=== PATIENT | male | born 1940 | race Caucasian/White ===

== ENCOUNTER 2018-06-15 07:29 | Observation (INO) | payer MEDICARE ==
--- NOTE | 2018-06-15 08:08 | RAD ---
PORTABLE AP CHEST: Date: 06/15/18 HISTORY: Patient not speaking appropriately. COMPARISON: 02/25/14. FINDINGS: Cardiac silhouette and pulmonary vasculature are within normal limits. There is mild elevation of the right hemidiaphragm, similar to the prior study. The lungs are clear. Vascular calcifications are se en in the thoracic aorta. There has been no interval change from the prior exam. IMPRESSION: No acute cardiopulmonary process. POS: [facility]
[2018-06-15 08:09] LABS: #Basophils 0.1 thou/uL (0.0-0.2); #Lymphocytes 1.7 thou/uL (1.20-3.40); #Monocytes 0.6 thou/uL (0.11-0.59); #Neutrophils 6.3 thou/uL (1.40-6.50); %Basophils 0.9 % (0.0-1.0); %Eosinophils 0.4 % (0.0-10.0); %Lymphocytes 19.3 % (21.0-51.0); %Monocytes 7.1 % (0.0-10.0); %Neutrophils 72.2 % (42.0-75.0); Hemoglobin 14.1 g/dL (14.0-18.0); Mean Corpuscular HGB CONC 32.1 g/dL (32.0-36.0); Mean Corpuscular Hemoglobin 29.5 pg (27.0-31.0); Mean Corpuscular Volume 91.8 fL (78.0-98.0); Mean Platelet Volume 9.5 fL (7.4-10.4); Platelet Count 248 thou/uL (130-400); RBC Distribution Width 12.3 % (11.5-14.5); Red Blood Cell (RBC) Count 4.79 mill/uL (4.70-6.10); White Blood Cell (WBC) Count 8.8 thou/uL (4.8-10.8)
[2018-06-15 08:26] LABS: ALT (SGPT) 14 U/L (8-55); AST (SGOT) 16 U/L (5-34); Albumin 4.7 g/dL (3.4-4.8); Alkaline Phosphatase 79 U/L (40-150); Anion Gap 19 mmol/L (10-20); BUN (Urea Nitrogen) 24 mg/dL (8.4-25.7); Calc. Creatinine Clearance 0 mL/min (70-130); Calcium 10.6 mg/dL (7.8-10.44); Carbon Dioxide 21 mmol/L (23-31); Chloride 103 mmol/L (98-107); Estimated GFR-MDRD 51; Globulin 3.1 g/dL (2.4-3.5); Glucose 142 mg/dL (83-110); Potassium 5.1 mmol/L (3.5-5.1); Protein, Total 7.8 g/dL (5.8-8.1); Sodium 138 mmol/L (136-145)
[2018-06-15 08:49] LABS: CKMB 1.2 ng/mL (0-6.6)
[2018-06-15] MEDS ORDERED: Aspirin Chewable 81 MG TAB ONE (09:00)
--- NOTE | 2018-06-15 09:09 | CT ---
NONCONTRAST CT HEAD: Date: 06/15/18 HISTORY: Difficulty ambulating with onset of symptoms for 1.5 weeks. Slurred speech. COMPARISON: None available. FINDINGS: There is decreased attenuation seen in the periventricular white matter which is nonspecific but like ly reflective of moderate chronic small vessel ischemic changes. Low density foci are seen within the posterior limb of left internal capsule and posterior aspect of the left lentiform nucleus related t o lacunar infarctions of indeterminate age. There is also a low density focus within the right aspect of the toby related to a lacunar infarction of indeterminate age. There is no evidence of an acute cortical infarction, hemorrhage, mass effect, or midline shift. Cere bral and cerebellar volume loss is present. Low density area seen within the posteromedial right cere bellar hemisphere has the appearance more suggestive of a remote area of infarction as opposed to asy mmetry and volume loss. Ventricular system is normal in size, shape, and position for the degree of sulcal atrophy. Visualize d paranasal sinuses and mastoid air cells are clear. Calvarial structures are intact. IMPRESSION: 1. Lacunar infarctions within the left basal ganglia and right aspect of the toby, which are of inde terminate age. No acute cortical infarction is seen. 2. Moderate chronic small vessel ischemic changes. 3. Remote infarction right cerebellar hemisphere. 4. Cerebral and cerebellar volume loss. POS: [facility]
[2018-06-15 11:14] LABS: Troponin I 0.038 ng/mL (< 0.028)
[2018-06-15] MEDS ORDERED: Acetaminophen 325 MG TAB PO PRN (11:31)
[2018-06-15] MEDS ORDERED: Dextrose 5% in Water 1,000 ML IV PRN (11:47)
[2018-06-15] MEDS ORDERED: Dextrose 50% Abboject 50 ML SYRINGE SLOW IVP PRN (11:47)
--- NOTE | 2018-06-15 12:35 | HP ---
CHIEF COMPLAINT: Difficulty walking and slurred speech. HISTORY OF PRESENT ILLNESS: The patient is a 78-year-old male with a history of diabetes, hypertension, hyperlipidemia, who presented via the emergency department. The patient is with his family today including his son. The patient started having some difficulty walking about 5 days ago. He was having some staggering. The patient has some difficulty clearly assessing, which like he thinks might have been were problematic, but his family indicates he was complaining more about his right leg being a challenge, and the patient thinks that is likely the case, and then, felt like both of his legs were weak. He had initially been ambulating even with the staggering and difficulty, but subsequently has been trying to use a cane. He also developed some slurred speech, which was difficult for the family to understand occurring about the same time as the gait disturbance. They think it is possible that might be slightly better today. They have been after the patient to come to the hospital since the onset of symptoms and he ultimately agreed today. The patient states he does not believe he needs to be in the hospital and is eager to go home. He denies any problems with his memory or any specific cognitive changes. He denies any problems with his blood sugars presently. He has had no fevers or chills. PAST MEDICAL HISTORY: Notable for hypertension, hyperlipidemia, diabetes mellitus, and history of prostate cancer. PAST SURGICAL HISTORY: Prostate resection about 10 years ago. FAMILY HISTORY: Reviewed. SOCIAL HISTORY: The patient has been a chew tobacco user for most of his life. States he loves it and continues to do it. He very occasionally will drink beer. He has never used drugs. He was as of March 30, 2018, and currently, lives with family. REVIEW OF SYSTEMS: The patient reports that he has been eating and drinking quite well, some discrepancy amongst family members whether that is the case or not, but ultimately it sounds like he probably has been. He continues to be active and working with his animals at home. All other systems were reviewed and all pertinent positives and negatives noted in the history of present illness. ALLERGIES: PENICILLIN. CURRENT MEDICATIONS: 1. Vitamin D3 1000 units p.o. daily. 2. Aspirin 81 mg daily. 3. Amlodipine 5 mg at bedtime. 4. Metformin 1000 mg p.o. b.i.d. 5. Lisinopril 20 mg p.o. b.i.d. PHYSICAL EXAMINATION: VITAL SIGNS: Temperature 97.4, pulse 70, respirations 16, O2 saturation 98% on room air, BP 132/75. GENERAL APPEARANCE: Age-appropriate male, who is awake, alert, oriented, pleasant, and cooperative. HEENT: PERRL. No OP lesions. He has dentures, which are stained as well as his tongue is stained with color of tobacco. NECK: Supple and symmetric. There are no bruits noted on auscultation. HEART: Regular rate and rhythm without murmurs, gallops, or rubs. LUNGS: Clear to auscultation bilaterally with good chest wall expansion and air exchange. ABDOMEN: Soft, nontender, and nondistended. Positive bowel sounds. No organomegaly. EXTREMITIES: Warm and dry. No edema. SKIN: No skin lesions or rashes. NEUROLOGIC: The patient does have slight dysarthria. Otherwise, cranial nerves are grossly intact. His motor strength appears to be good throughout. He possibly has slight weakness on the left side, but it is subtle in both the upper and lower extremities. LABORATORY DATA: White count 8.8, hemoglobin 14.1, platelets 248. Sodium 138, potassium 5.1, chloride 103, CO2 of 21, BUN 24, creatinine 1.36, glucose 142, calcium 10.6, AST 16, ALT 14. Troponin 0.0037, subsequently 0.038. Albumin 4.7. IMAGING STUDIES: CT scan of brain reveals lacunar infarctions within the left basal ganglia and right aspect of the toby, which are indeterminate in age. No acute cortical infarction seen. Moderate chronic small-vessel ischemic changes. Remote infarct of the right cerebellar hemisphere. Chest x-ray, no acute cardiopulmonary processes. IMPRESSION AND PLAN: 1. Subacute cerebrovascular accident. The patient has evidence of lacunar and cerebellar infarcts on the CT scan, somewhat age indeterminate, clearly had acute onset of symptoms about 5 days ago. The patient is already on aspirin. He has had no prior workup. We will get an MRI of the head, echocardiogram, carotid Dopplers in light of his renal function. We will get the stroke team consult and Neurology consult. 2. Chronic kidney disease stage 3. His creatinine appears to be stable and at baseline. Likely related to his diabetes and hypertension. 3. Hypercalcemia, new. Etiology is unknown. We will repeat in the morning. 4. Equivocal troponins, likely secondary to the patient's chronic kidney disease. He has had no cardiac symptoms, and his numbers so far are not representing any type of physiologic rise. We will continue to monitor. 5. Diabetes mellitus. Diabetic diet. Accu-Chek's. Continue metformin. 6. Hypertension. Continue with his usual home medication regimen of amlodipine and lisinopril. 7. Hyperlipidemia. The patient has a history of a significant reaction with transaminitis and rhabdomyolysis with statin therapy. Therefore, those were not going to be introduced at this time. 8. History of chronic tobacco abuse with smokeless tobacco. Job ID: [id number]
--- NOTE | 2018-06-15 13:36 | ULT ---
CAROTID ULTRASOUND WITH GUNN SCALE AND DOPPLER DUPLEX COLOR FLOW IMAGING SPECTRAL ANALYSIS PERFORMED: DATE: 06/15/18 CLINICAL INDICATION: CVA. FINDINGS: There is scattered moderate atherosclerotic calcification of the carotid arteries. PEAK SYSTOLIC VELOCITY (CM/S): Right CCA 86 Left CCA 100 Right ICA 148 Left ICA 83 There is antegrade flow within the visualized bilateral vertebral arteries. IMPRESSION: 1. 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 2. No hemodynamically significant stenosis of the left internal carotid artery. POS: [facility]
[2018-06-15 14:15] LABS: Troponin I 0.028 ng/mL (< 0.028)
--- NOTE | 2018-06-15 14:57 | MRI ---
MRI BRAIN WITHOUT IV CONTRAST: Date: 06/15/18 HISTORY: CVA. Difficulty ambulating. Slurred speech. CT exam demonstrating lacunar infarctions of indeterminat e age in the right toby and left basal ganglia. COMPARISON: Noncontrast CT head on 06/15/18 obtained at 0802 hours. FINDINGS: There are separate foci of restricted diffusion present within the right aspect of the toby compatibl e with acute lacunar infarctions in the right aspect of the toby. This is also seen on the recent CT scan exam. No additional areas of restricted diffusion to suggest additional areas of acute infarctio n. There are patchy confluent areas of increased FLAIR and T2-weighted signal intensity in the periventr icular and subcortical white matter which are nonspecific but likely attributable to severe chronic s mall vessel ischemic changes. There is an area of encephalomalacia and gliosis seen in the right cere bellar hemisphere, compatible with a remote infarction in the right cerebellar hemisphere. There are hyperintense signal abnormalities within the left basal ganglia involving the posterior martin b left internal capsule and the left lentiform nucleus which demonstrate characteristics compatible w ith more remote lacunar infarctions. There is cerebral and cerebellar volume loss. The ventricular system is normal in size, shape, and po sition for the degree of sulcal atrophy. Grossly appropriate flow-voids are demonstrated at the base of the brain. The orbits, paranasal sinuses, and skull base demonstrate a normal MRI appearance, aside from effusio ns and right-sided mastoid air cells. IMPRESSION: 1. Acute lacunar infarctions in the right toby. 2. Remote lacunar infarctions in the left basal ganglia. 3. Findings likely reflective of moderate chronic small vessel ischemic changes. 4. Remote infarction right cerebellar hemisphere. 5. Cerebral and cerebellar volume loss. 6. Right mastoid effusions. Above findings discussed with Tasha, nurse in charge of the patient's hospital care on the [facility] on 06/15/18 at 1304 hours. CODE CR. POS: [facility]
[2018-06-15] MEDS: metFORMIN 500 MG TAB PO SCH (16:20)
[2018-06-15] MEDS ORDERED: Amlodipine 5 MG TAB PO SCH (21:00)
[2018-06-15] MEDS: Lisinopril 20 MG TAB PO SCH (22:28)
[2018-06-16] MEDS: metFORMIN 500 MG TAB PO SCH (08:35)
[2018-06-16] MEDS: Lisinopril 20 MG TAB PO SCH (08:35)
[2018-06-16] MEDS ORDERED: Aspirin 81 mg Enteric Coated Tablet PO SCH (09:00)
[2018-06-16 11:51] VITALS: TEMP 98.6
[2018-06-16 13:42] VITALS: BP 149/83
[2018-06-16] MEDS ORDERED: Clopidogrel Bisulfate 75 MG TAB PO SCH (13:45)
[2018-06-17] MEDS ORDERED: Clopidogrel Bisulfate 75 MG TAB PO SCH (09:00)
--- NOTE | 2018-06-17 13:39 | DIS ---
DATE OF ADMISSION: 06/15/2018 DATE OF DISCHARGE: 06/16/2018 DISCHARGE DIAGNOSES: 1. Subacute cerebrovascular accident with some gait disturbance and speech disturbance. 2. Chronic kidney disease, stage 3. 3. Equivocal troponins felt to be type 2, not related to acute ischemic event. 4. Diabetes mellitus. 5. Borderline elevated calcium. 6. Hyperlipidemia with a history of severe reaction to statin drugs. 7. Chronic smokeless tobacco abuse. HISTORY OF PRESENT ILLNESS: This patient is a 78-year-old male who apparently developed some difficulties with ambulation, which the patient could not really elucidate further but thought maybe he was having some problems more with his right leg, but was noted by the family to have more difficulty coordinating his gait. He also had some dysarthria and speech issues at the same time, both of which occurred about 5 days prior to the patient presenting. The patient's family had encouraged him to present to the hospital during that time. However, the patient had essentially refused and they were ultimately able to convince him to do so. In the emergency department, the patient underwent a CT scan of the brain, which revealed lacunar infarctions within the left basal ganglia and right aspect of the toby, which were of indeterminate age, and there was chronic small-vessel ischemia with a remote infarction in the right cerebellar hemisphere. There was general cerebellar and cerebral volume loss. Chest x-ray revealed no evidence of acute cardiopulmonary processes. There was concern for the possibility of strokes. The patient was subsequently admitted to the hospital. The patient was also noted to have borderline elevation of his troponins. BUN 24, creatinine of 1.3, which were only minimally above his baseline and consistent with some of his prior readings. His calcium level was at 10.6. HOSPITAL COURSE: The patient was placed on observation in the Neuro floor. It was felt the patient likely had suffered a stroke 5 or 6 days prior to his presentation making it more subacute. He did have an MRI of the brain, which revealed acute lacunar infarctions in the right toby felt to be likely related to his presentation symptoms, also remote lacunar infarctions of the left basal ganglia. Findings reflective of moderate chronic small-vessel ischemic changes. Remote infarctions of the right cerebellar hemisphere. Cerebral and cerebellar volume loss in the right mastoid effusion. The patient also had carotid Dopplers in lieu of CT angiogram given his chronic kidney disease. There was no hemodynamic stenosis on the left and only moderate stenosis on the right given velocity changes. The patient also had an echocardiogram performed which revealed ejection fraction of 55% to 60% and otherwise no significant structural or functional abnormalities. The patient was seen by physical therapy who felt the patient was not quite ready for a walker, but needed at least a cane. They worked with the patient and his family regarding the cane that the patient was using in order to establish comfort level with that. The patient was not very desirous of staying in the hospital and was extremely eager to be discharged to get back home and there was a consultation for Neurology, however, that apparently got significantly delayed and given the workup, it was felt the findings were fairly evident. Neurology did review the case and recommended the addition of Plavix. Also of note, the patient did not have a fasting lipid panel obtained as he had one done in 05/02, which did reveal some elevations of his total cholesterol and triglycerides. However, the patient had a history of a profound rhabdomyolysis with a CK level in the 45,000 range, which was felt to be related to medications, statins of which were among the most likely cause. Therefore, the patient was not a candidate for statin therapy. PHYSICAL EXAMINATION: VITAL SIGNS: On the day of discharge, temperature was 98.6, pulse 72, respirations 18, O2 saturation 95% on room air. Pulse ranged from 77 to 114, BP ranged from 114/77 to 149/83. The patient was awake and alert, very pleasant, and cooperative. HEART: Regular without murmurs. LUNGS: Clear. ABDOMEN: Benign. NEUROLOGICAL: The patient was able to speak quite coherently and intelligibly. He had no gross motor weakness and his gait was unchanged. DISPOSITION: The patient is discharged to home. ACTIVITY: As tolerated. He will have home health and home physical therapy and use the assistance of a cane. DIET: He will be on a heart healthy diet. DISCHARGE MEDICATIONS: He will be on: 1. Aspirin 81 mg p.o. daily. 2. Plavix 75 mg daily. 3. He will continue with metformin 1000 mg b.i.d. 4. Lisinopril 20 mg b.i.d. 5. Amlodipine 5 mg daily. 6. Vitamin D3 10,000 units daily. FOLLOWUP: He will follow up with Dr. Acosta Greer in [address] Juan Ramírez, in 3 to 4 weeks. He can return to the emergency department should he have any problems prior to that time. The patient likely will have renal function and calcium repeated at his followup. Job ID: [id number]
== END 2018-06-16 14:58 | disposition home health service (06) ==
LOC: ERS 07:29 → 2SE 10:26
PROVIDERS: ADMIT Internal Medicine; ATTEND Internal Medicine
DX: I63.9 Cerebral infarction, unspecified (principal); I12.9 Hypertensive chronic kidney disease with stage 1 through stage 4 chronic kidney disease, or unspecified chronic kidney disease; E11.22 Type 2 diabetes mellitus with diabetic chronic kidney disease; N18.3 Chronic kidney disease, stage 3 (moderate); E83.52 Hypercalcemia; E78.5 Hyperlipidemia, unspecified; F17.290 Nicotine dependence, other tobacco product, uncomplicated; Z85.46 Personal history of malignant neoplasm of prostate; Z90.79 Acquired absence of other genital organ(s); Z88.0 Allergy status to penicillin; Z79.02 Long term (current) use of antithrombotics/antiplatelets; Z79.82 Long term (current) use of aspirin; Z79.84 Long term (current) use of oral hypoglycemic drugs; Z79.899 Other long term (current) drug therapy
CPT/HCPCS: 70450; 70551; 71045; 80053; 82553; 82962 ×2; 84484 ×2; 85025; 85730; 93306; 93880; 97116; 97139 ×4; 99285; G0378 ×2; 36415; 36416

== ENCOUNTER 2021-09-07 07:45 | Inpatient (IN) | payer MEDICARE ==
[2021-09-07 08:19] LABS: #Lymphocytes 1.5 thou/uL (1.20-3.40); #Monocytes 0.6 thou/uL (0.11-0.59); %Basophils 0.6 % (0.0-1.0); %Eosinophils 0.4 % (0.0-10.0); %Monocytes 7.8 % (0.0-10.0); %Neutrophils 73.2 % (42.0-75.0); Hemoglobin 12.4 g/dL (14.0-18.0); Mean Corpuscular HGB CONC 32.4 g/dL (32.0-36.0); Mean Corpuscular Hemoglobin 29.9 pg (27.0-31.0); Mean Corpuscular Volume 92.3 fL (78.0-98.0); Mean Platelet Volume 8.5 fL (7.4-10.4); Platelet Count 240 thou/uL (130-400); RBC Distribution Width 12.3 % (11.5-14.5); Red Blood Cell (RBC) Count 4.15 mill/uL (4.70-6.10); White Blood Cell (WBC) Count 8.2 thou/uL (4.8-10.8)
[2021-09-07] MEDS ORDERED: Aspirin Chewable 81 MG TAB ONE (08:40)
[2021-09-07 08:41] LABS: ALT (SGPT) 10 U/L (8-55); AST (SGOT) 13 U/L (5-34); Albumin 4.3 g/dL (3.4-4.8); Alkaline Phosphatase 67 U/L (40-110); Anion Gap 15 mmol/L (10-20); BUN (Urea Nitrogen) 16 mg/dL (8.4-25.7); Bilirubin, Total 0.7 mg/dL (0.2-1.2); Calc. Creatinine Clearance 0 mL/min (70-130); Calcium 9.8 mg/dL (7.8-10.44); Carbon Dioxide 24 mmol/L (23-31); Chloride 105 mmol/L (98-107); Globulin 2.8 g/dL (2.4-3.5); Glucose 164 mg/dL (83-110); Potassium 4.9 mmol/L (3.5-5.1); Protein, Total 7.1 g/dL (5.8-8.1); Sodium 139 mmol/L (136-145)
[2021-09-07] MEDS ORDERED: Acetaminophen 325 MG TAB PO PRN (09:42)
[2021-09-07] MEDS ORDERED: HYDROcodone/Acetaminophen 5/325 mg Tablet PO PRN (09:42)
[2021-09-07] MEDS ORDERED: Calcium Carbonate 500 MG ChewTAB PO PRN (09:42)
[2021-09-07] MEDS ORDERED: Senokot S 8.6-50 MG TAB PO PRN (09:42)
[2021-09-07] MEDS ORDERED: Sodium Chloride 0.9% 1,000 ML IV SCH (09:45)
[2021-09-07] MEDS ORDERED: Dextrose 5% in Water 1,000 ML IV PRN (09:47)
[2021-09-07] MEDS ORDERED: Dextrose 50% Abboject 50 ML SYRINGE SLOW IVP PRN (09:47)
[2021-09-07] MEDS ORDERED: HumaLOG 300 UNITS/3 ML VIAL SC PRN (09:47)
[2021-09-07] MEDS ORDERED: Ondansetron PF 4 MG/2 ML Vial IVP PRN (10:18)
[2021-09-07] MEDS ORDERED: Ondansetron ODT 4 MG TAB PO PRN (10:19)
[2021-09-07 10:49] VITALS: BMI 20.2
[2021-09-07 14:09] LABS: Troponin I 0.072 ng/mL (< 0.028)
[2021-09-07] MEDS ORDERED: Atorvastatin Calcium 40 MG TAB PO SCH (21:00)
[2021-09-07 22:46] LABS: SARS-CoV-2 PCR by NAA Not Detected (NotDetected)
[2021-09-08 04:41] LABS: #Basophils 0.1 thou/uL (0.0-0.2); #Eosinphils 0.1 thou/uL (0.0-0.7); #Lymphocytes 1.6 thou/uL (1.20-3.40); #Monocytes 0.6 thou/uL (0.11-0.59); #Neutrophils 3.2 thou/uL (1.40-6.50); %Basophils 0.9 % (0.0-1.0); %Eosinophils 0.9 % (0.0-10.0); %Lymphocytes 28.9 % (21.0-51.0); %Monocytes 11.5 % (0.0-10.0); %Neutrophils 57.7 % (42.0-75.0); Hemoglobin 10.8 g/dL (14.0-18.0); Mean Corpuscular HGB CONC 32.5 g/dL (32.0-36.0); Mean Corpuscular Hemoglobin 30.3 pg (27.0-31.0); Mean Corpuscular Volume 93.3 fL (78.0-98.0); Mean Platelet Volume 8.8 fL (7.4-10.4); Platelet Count 197 thou/uL (130-400); RBC Distribution Width 12.1 % (11.5-14.5); Red Blood Cell (RBC) Count 3.55 mill/uL (4.70-6.10); White Blood Cell (WBC) Count 5.6 thou/uL (4.8-10.8)
[2021-09-08 04:49] LABS: Hemoglobin A1c 6.1 % (4.0-6.0)
[2021-09-08 05:01] LABS: Anion Gap 10 mmol/L (10-20); BUN (Urea Nitrogen) 15 mg/dL (8.4-25.7); Calc. Creatinine Clearance 43 mL/min (70-130); Calcium 8.9 mg/dL (7.8-10.44); Carbon Dioxide 25 mmol/L (23-31); Cardiac Risk 5.1 (Less than 4.5); Chloride 107 mmol/L (98-107); Cholesterol 199 mg/dl (< 200 Desired); Glucose 128 mg/dL (83-110); HDL Cholesterol 39 mg/dL (>60 Neg Risk); LDL Cholesterol, Calculated 121 mg/dL; Potassium 4.4 mmol/L (3.5-5.1); Sodium 138 mmol/L (136-145); Triglycerides 197 mg/dL (Less than 150)
[2021-09-08] MEDS ORDERED: Aspirin 81 mg Enteric Coated Tablet PO SCH (09:00)
[2021-09-08] MEDS ORDERED: Clopidogrel Bisulfate 75 MG TAB PO SCH (09:00)
[2021-09-08] MEDS ORDERED: Enoxaparin Sodium 40 MG/0.4 ML SYRINGE SC SCH (09:00)
[2021-09-08 16:25] VITALS: BP 155/83; TEMP 98.3
== END 2021-09-08 18:00 | disposition home or self-care (01) | DRG 65 ==
LOC: ERS 07:45 → NEURO 08:49
PROVIDERS: ADMIT Family Medicine; ATTEND Family Medicine
DX: I63.9 Cerebral infarction, unspecified (principal); G81.91 Hemiplegia, unspecified affecting right dominant side; E11.9 Type 2 diabetes mellitus without complications; E78.5 Hyperlipidemia, unspecified; I10 Essential (primary) hypertension; R47.1 Dysarthria and anarthria; R29.810 Facial weakness; Z20.822 Contact with and (suspected) exposure to COVID-19; Z85.46 Personal history of malignant neoplasm of prostate; Z88.0 Allergy status to penicillin; Z86.73 Personal history of transient ischemic attack (TIA), and cerebral infarction without residual deficits; Z79.84 Long term (current) use of oral hypoglycemic drugs; Z79.82 Long term (current) use of aspirin; Z79.899 Other long term (current) drug therapy
CPT/HCPCS: 36415; 36416; 70450; 70496; 70498; 70551; 74230; 80048; 80053; 80061; 82553; 83036; 84443; 84484; 85025; 93005; 93306; J1650; J7050; U0003; U0005

== ENCOUNTER 2022-05-22 12:15 | Outpatient (CLI) | payer MEDICARE | END 2022-05-22 12:16 | disposition home or self-care (01) | LOC: ULT 12:15 | PROVIDERS: ATTEND Internal Medicine | DX: I77.9 Disorder of arteries and arterioles, unspecified (principal); I65.21 Occlusion and stenosis of right carotid artery | CPT/HCPCS: 93880 ==